=== PATIENT | female | born 1945 | race Caucasian/White ===

== ENCOUNTER 2021-03-26 03:08 | Inpatient (IN) | payer OTHER, MEDICARE, MEDICAID ==
[2021-03-26] MEDS ORDERED: hydrALAZINE 20 MG/ML VIAL SLOW IVP PRN (04:46)
[2021-03-26] MEDS ORDERED: Ondansetron ODT 4 MG TAB PO PRN (04:46)
[2021-03-26] MEDS ORDERED: Ondansetron PF 4 MG/2 ML Vial IVP PRN (04:46)
[2021-03-26] MEDS ORDERED: Dextrose 5% in Water 1,000 ML IV PRN (04:46)
[2021-03-26] MEDS ORDERED: Dextrose 50% Abboject 50 ML SYRINGE SLOW IVP PRN (04:46)
[2021-03-26 04:49] VITALS: BMI 21.2
[2021-03-26] MEDS ORDERED: Cyclobenzaprine 10 MG TAB PO PRN (04:50)
[2021-03-26] MEDS ORDERED: traMADol HCl 50 MG TAB PO PRN ×2 (04:50)
[2021-03-26] MEDS ORDERED: Morphine 4 MG/ML VIAL SLOW IVP PRN (04:56)
[2021-03-26] MEDS ORDERED: Sodium Chloride 0.9% 1,000 ML IV SCH (05:00)
[2021-03-26] MEDS ORDERED: Acetaminophen 500 MG TAB PO SCH (06:00)
[2021-03-26] MEDS: Acetaminophen 325 MG TAB PO SCH ×3 (06:26→18:34)
[2021-03-26] MEDS: Ibuprofen 800 MG TAB PO SCH ×3 (06:27→22:10)
[2021-03-26] MEDS: Famotidine 20 MG TAB PO SCH ×2 (09:03→22:11)
[2021-03-26] MEDS ORDERED: Morphine 4 MG/ML VIAL ONE (14:11)
[2021-03-26] MEDS ORDERED: Levofloxacin 500 mg/D5W 100 ml Premix Bag ONE (14:12)
[2021-03-26] MEDS ORDERED: Clindamycin/D5W 900 mg/50 ml Premix Bag ONE (14:12)
[2021-03-26] MEDS ORDERED: Fentanyl 100 MCG/2 ML VIAL ONE ×2 (14:22→16:09)
[2021-03-26] MEDS ORDERED: Clindamycin/D5W 900 MG in Premix Bag 1 BAG IVPB SCH (15:00)
[2021-03-26] MEDS ORDERED: PROPOFOL 20 ML ONE (16:10)
[2021-03-26] MEDS ORDERED: Rocuronium Bromide 50 MG/5 ML VIAL ONE (16:12)
[2021-03-26] MEDS ORDERED: Phenylephrine 10 MG/ML VIAL ONE (16:13)
[2021-03-26] MEDS ORDERED: Bupivacaine HCl 0.5%/Epinephrine 1:200,000/PF 30 ml Vial ONE (16:36)
[2021-03-26] MEDS ORDERED: Lidocaine 1% PF 5 ML VIAL ONE (16:36)
[2021-03-26] MEDS ORDERED: Rocuronium Bromide 10 MG/ML (10ML VIAL) ONE (16:36)
[2021-03-26] MEDS ORDERED: PROPOFOL 200 MG/20 ML VIAL ONE (16:36)
[2021-03-26] MEDS ORDERED: Ondansetron PF 4 MG/2 ML Vial ONE (16:36)
[2021-03-26] MEDS ORDERED: SUGAMMADEX SODIUM 200 MG/2 ML VIAL ONE (17:27)
[2021-03-26] MEDS: Clindamycin/D5W 900 MG in Premix Bag 1 BAG IVPB SCH (22:09)
[2021-03-27] MEDS: Acetaminophen 325 MG TAB PO SCH ×5 (03:45→22:51)
[2021-03-27] MEDS: Ibuprofen 800 MG TAB PO SCH ×3 (05:41→22:50)
[2021-03-27] MEDS: Clindamycin/D5W 900 MG in Premix Bag 1 BAG IVPB SCH (05:42)
[2021-03-27 05:59] LABS: #Eosinphils 0.3 thou/uL (0.0-0.7); #Neutrophils 11.2 thou/uL (1.40-6.50); %Basophils 0.3 % (0.0-1.0); %Eosinophils 1.9 % (0.0-10.0); %Lymphocytes 7.3 % (21.0-51.0); %Monocytes 7.2 % (0.0-10.0); %Neutrophils 83.3 % (42.0-75.0); Hemoglobin 10.6 g/dL (12.0-16.0); Mean Corpuscular HGB CONC 32.4 g/dL (32.0-36.0); Mean Corpuscular Hemoglobin 31.4 pg (27.0-31.0); Mean Corpuscular Volume 96.6 fL (78.0-98.0); Mean Platelet Volume 9.7 fL (7.4-10.4); Platelet Count 151 thou/uL (130-400); RBC Distribution Width 12.5 % (11.5-14.5); Red Blood Cell (RBC) Count 3.39 mill/uL (4.20-5.40); White Blood Cell (WBC) Count 13.4 thou/uL (4.8-10.8)
[2021-03-27 06:21] LABS: Phosphorus 2.7 mg/dL (2.3-4.7)
[2021-03-27 06:33] LABS: Anion Gap 13 mmol/L (10-20); BUN (Urea Nitrogen) 15 mg/dL (9.8-20.1); Calc. Creatinine Clearance 57 mL/min (70-130); Calcium 7.6 mg/dL (7.8-10.44); Carbon Dioxide 21 mmol/L (23-31); Chloride 105 mmol/L (98-107); Glucose 81 mg/dL (83-110); Magnesium 1.9 mg/dL (1.6-2.6); Potassium 4.3 mmol/L (3.5-5.1); Sodium 135 mmol/L (136-145)
[2021-03-27] MEDS: Famotidine 20 MG TAB PO SCH ×2 (08:32→22:51)
[2021-03-27] MEDS: Sodium Chloride 0.9% 1,000 ML IV SCH (22:43)
[2021-03-28] MEDS: Acetaminophen 325 MG TAB PO SCH ×4 (05:37→21:18)
[2021-03-28] MEDS: Ibuprofen 800 MG TAB PO SCH ×3 (05:38→21:20)
[2021-03-28] MEDS: Famotidine 20 MG TAB PO SCH ×2 (09:25→21:19)
[2021-03-28] MEDS: Sodium Chloride 0.9% 1,000 ML IV SCH ×2 (18:12→21:30)
[2021-03-29] MEDS: Ibuprofen 800 MG TAB PO SCH ×3 (05:40→20:41)
[2021-03-29] MEDS: Acetaminophen 325 MG TAB PO SCH ×3 (05:41→17:26)
[2021-03-29 06:42] LABS: #Basophils 0.1 thou/uL (0.0-0.2); #Eosinphils 0.5 thou/uL (0.0-0.7); #Lymphocytes 1.7 thou/uL (1.20-3.40); #Monocytes 0.7 thou/uL (0.11-0.59); #Neutrophils 6.6 thou/uL (1.40-6.50); %Basophils 0.6 % (0.0-1.0); %Eosinophils 5.5 % (0.0-10.0); %Lymphocytes 17.8 % (21.0-51.0); %Monocytes 6.8 % (0.0-10.0); %Neutrophils 69.4 % (42.0-75.0); Hemoglobin 9.2 g/dL (12.0-16.0); Mean Corpuscular HGB CONC 32.8 g/dL (32.0-36.0); Mean Corpuscular Hemoglobin 31.7 pg (27.0-31.0); Mean Corpuscular Volume 96.8 fL (78.0-98.0); Platelet Count 164 thou/uL (130-400); RBC Distribution Width 12.8 % (11.5-14.5); Red Blood Cell (RBC) Count 2.91 mill/uL (4.20-5.40); White Blood Cell (WBC) Count 9.5 thou/uL (4.8-10.8)
[2021-03-29 07:04] LABS: Anion Gap 8 mmol/L (10-20); BUN (Urea Nitrogen) 17 mg/dL (9.8-20.1); Calc. Creatinine Clearance 62 mL/min (70-130); Calcium 7.7 mg/dL (7.8-10.44); Carbon Dioxide 26 mmol/L (23-31); Chloride 111 mmol/L (98-107); Glucose 102 mg/dL (83-110); Magnesium 2.1 mg/dL (1.6-2.6); Phosphorus 2.5 mg/dL (2.3-4.7); Potassium 4.2 mmol/L (3.5-5.1); Sodium 141 mmol/L (136-145)
[2021-03-29] MEDS ORDERED: Loperamide HCl 2 MG CAP PO PRN (07:55)
[2021-03-29] MEDS ORDERED: Polyethylene Glycol 3350 17 GM Packet PO PRN (07:55)
[2021-03-29] MEDS ORDERED: Senokot 8.6 MG TAB PO PRN (07:58)
[2021-03-29] MEDS ORDERED: FLU VACC QS2021-22(65YR UP)/PF 240 MCG/0.7 ML SYRINGE IM ONE (09:00)
[2021-03-29] MEDS ORDERED: Losartan 25 MG TAB PO SCH (09:00)
[2021-03-29] MEDS: Losartan 25 MG TAB PO SCH ×2 (09:41→09:43)
[2021-03-29] MEDS: Magnesium Oxide 400 MG TAB PO SCH (09:41)
[2021-03-29] MEDS: Aspirin 81 mg Enteric Coated Tablet PO SCH ×2 (09:41→20:42)
[2021-03-29] MEDS: risperiDONE 0.25 MG TAB PO SCH ×2 (09:41→20:42)
[2021-03-29] MEDS: Donepezil HCl 10 MG TAB PO SCH (09:41)
[2021-03-29] MEDS: Famotidine 20 MG TAB PO SCH ×2 (09:41→20:42)
[2021-03-29] MEDS: Polyethylene Glycol 3350 17 GM Packet PO SCH (09:44)
[2021-03-29] MEDS ORDERED: Senokot 8.6 MG TAB PO SCH (21:00)
[2021-03-29] MEDS ORDERED: Rosuvastatin 10 MG TAB PO SCH (21:00)
[2021-03-30] MEDS: Acetaminophen 325 MG TAB PO SCH ×4 (00:31→17:55)
[2021-03-30] MEDS: Ibuprofen 800 MG TAB PO SCH ×2 (06:10→13:25)
[2021-03-30 06:12] LABS: #Basophils 0.1 thou/uL (0.0-0.2); #Eosinphils 0.5 thou/uL (0.0-0.7); #Lymphocytes 1.9 thou/uL (1.20-3.40); #Monocytes 0.7 thou/uL (0.11-0.59); #Neutrophils 6.6 thou/uL (1.40-6.50); %Basophils 0.6 % (0.0-1.0); %Eosinophils 5.2 % (0.0-10.0); %Lymphocytes 19.3 % (21.0-51.0); %Monocytes 6.8 % (0.0-10.0); %Neutrophils 68.1 % (42.0-75.0); Hemoglobin 9.7 g/dL (12.0-16.0); Mean Corpuscular HGB CONC 34.4 g/dL (32.0-36.0); Mean Corpuscular Hemoglobin 32.9 pg (27.0-31.0); Mean Corpuscular Volume 95.5 fL (78.0-98.0); Mean Platelet Volume 9.5 fL (7.4-10.4); Platelet Count 208 thou/uL (130-400); RBC Distribution Width 12.8 % (11.5-14.5); Red Blood Cell (RBC) Count 2.95 mill/uL (4.20-5.40); White Blood Cell (WBC) Count 9.7 thou/uL (4.8-10.8)
[2021-03-30] MEDS: Aspirin 81 mg Enteric Coated Tablet PO SCH (08:34)
[2021-03-30] MEDS: Magnesium Oxide 400 MG TAB PO SCH (08:34)
[2021-03-30] MEDS: Donepezil HCl 10 MG TAB PO SCH (08:34)
[2021-03-30] MEDS: risperiDONE 0.25 MG TAB PO SCH (08:34)
[2021-03-30] MEDS: Polyethylene Glycol 3350 17 GM Packet PO SCH (08:35)
[2021-03-30] MEDS: Losartan 25 MG TAB PO SCH (08:36)
[2021-03-30 15:30] VITALS: BP 134/64; TEMP 99.3
== END 2021-03-30 18:44 | disposition home or self-care (01) | DRG 522 ==
LOC: 2NO 03:08 → UNDOADMIN 03:08 → SURG A 04:42
PROVIDERS: ADMIT Surgery; ATTEND Surgery
PROC: 0SRR0JA Replacement of Right Hip Joint, Femoral Surface with Synthetic Substitute, Uncemented, Open Approach (ICD-10-PCS; principal; 2021-03-26)
DX: S72.031A Displaced midcervical fracture of right femur, initial encounter for closed fracture (principal); F03.90 Unspecified dementia, unspecified severity, without behavioral disturbance, psychotic disturbance, mood disturbance, and anxiety; F41.9 Anxiety disorder, unspecified; E78.5 Hyperlipidemia, unspecified; I25.10 Atherosclerotic heart disease of native coronary artery without angina pectoris; I73.9 Peripheral vascular disease, unspecified; Z88.5 Allergy status to narcotic agent; Z88.0 Allergy status to penicillin; Z88.8 Allergy status to other drugs, medicaments and biological substances; Y92.89 Other specified places as the place of occurrence of the external cause; I12.9 Hypertensive chronic kidney disease with stage 1 through stage 4 chronic kidney disease, or unspecified chronic kidney disease; N18.30 Chronic kidney disease, stage 3 unspecified; W01.0XXA Fall on same level from slipping, tripping and stumbling without subsequent striking against object, initial encounter; Y92.129 Unspecified place in nursing home as the place of occurrence of the external cause
CPT/HCPCS: 36415; 71045; 72170; 80048; 80053; 83735; 84100; 85025; 85610; 85730; 90471; 90662; 90732; 93005; 93010; 94760; 96374; G0008; G0009; J1956; J2270; J2370; J2405; J2704; J3010; J3490; J7050; U0002